=== PATIENT | female | born 1980 ===

== ENCOUNTER 2017-11-07 08:45 | Outpatient (RCR) | payer MEDICAID, SELFPAY ==
--- NOTE | 2017-11-07 09:00 | IE_ITS ---
Date: November 07, 2017 Referring: Myriam Mcdonough ND M.D. Diagnosis: Neck pain, Sacral Pain, Migraine Headaches, PMS, Dysmenorrhea P.T. Diagnosis: Neck pain, Sacral pain, MARTINEZ SUBJECTIVE: History of Present Illness: Donna is a 37 year old female referred for PT evaluation and treatment s/p diagnosis of neck/sacral pain, migraine headaches and dysmenorrhea. Donna reports that her symptoms began after the of her son, whom is 7 years old currently. She reports she has been seen via PT in the past and they feel that she sustained an injury to her dural tube during her delivery. She reports that post her first delivery she continued to push through and complete all that was required of her including exercise. She reports post the of her second child increased irritation to the sacral region that progressed up the spine to her cervical region with daily MARTINEZ's, jaw pain. She has had previous acupuncture, craniosacral and PT which focused on myofascial and stretching. Her current physician would like more focus on an exercise program. She has tried Yoga and loves Yoga however once she completes Yoga she has to run to the chiropractor. She reports that she seeks chiropractic manipulations every 3 weeks. She has tried to go longer and has increased irritation to the point where it is difficult to perform her daily tasks. She is gluten intolerant and watches her diet regularly to avoid inflammatory foods. Pain Ratin-5/10 Pain Location: Sacral right greater than left, cervical musculature Current Level of Function: Difficulty with driving, prolonged standing, sitting tolerance. Notes relief with chiropractic adjustments, stretching. She gets 6-8 hours of sleep per night. Notes occasional numbness in her left ring finger, she also notes occasionally her hands turn white and get really cold. She notes of pin prick sensations down her lateral legs into her feet. Declines any bowel/bladder dysfunction. Previous Treatment: Chiropractor, Acupuncture, Physical therapy Social: She lives at home with her 2 children and . 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 She has the semester off. Comorbidities: 4 breasts surgeries to remove fibro cysts, Anxiety, Migraines Falls in the last year: No Reported hospitalizations in the last year - No Medications: Supplements Quality of Life: Fair Standardized Measures: MOLBPDQ: __28%__ NDI score: __32%__ OBJECTIVE: Posture: Equal iliac crest, equal shoulder height, mild forward head. Observation: Appears to be in no acute distress. Demonstrates independent transfers without pain or limitation Gait: Nonantalgic. Is able to heel and toe walk without dysfunction Palpation: Tenderness to palpation over the right greater than left PSIS, into the pelvic brim and gluteal musculature. (-) PA glides to the lumbar spine. Tenderness and increased tone into the upper trap, lev scap, SCM, scalenes and paraspinal musculature ROM: Active cervical ROM WFL except side bending limited to 20-25 degrees with increased drawing sensation. Lumbar ROM forward bend 4 inches fingers to floor with increased drawing sensation. Extension WFL with increased LBP. She is able to complete full prone press up with mild end range pain. Sidebending WFL with fingertips to lateral joint line bilaterally. Rotation is equal and symmetrical without pain. AA LE ROM is WFL's declines pain however noted tightness. A UE ROM WNL's and painfree. Strength: Demonstrates grossly 5/5 UE strength bilaterally. LE strength 5/5 with the exception of hip abduction 4/5, extension 4+/5. Fair abdominal strength. Neuro: Intact to light touch. Special Tests: (-) PAULETTE, (-) SLR, (-) Foraminal compression Treatment: IE: 75113 Patient Education: HEP, manual cervical mobilization, soft tissue stretching, soft tissue mobilization to the upper back and neck TPR to the upper trap and lev scap. scalenes. Ended with cervical MHP for 10 minutes post session. Direct treatment time: 60 minutes Total treatment time: 70 minutes ASSESSMENT: Patient is a 37-year-old female, referred for PT services with the diagnosis of sacral pain, cervical pain, MARTINEZ's, dysmenorrhea. Patient presents with clinical signs and symptoms consistent with diagnosis, as demonstrated by the following impairment level findings: impaired muscle performance, soft tissue dysfunction , motor function. Impairments are contributing to the following functional limitations: limited standing and sitting tolerance, ADL tolerance Patient is assessed as: Low 65212 complexity, based on the following: History: See comorbidities and social history. Examination: See above for functional limitations and impairments. Presentation: Stable . Decision-Making: Low complexity 32 % Disability based on NDI Patient requires skilled PT intervention to remediate the above functional limitations to return to: __X__ Premorbid level of function __X__ Return to full functional mobility __X__ Return to work demands __X__ Improve QOL Prognosis: Good STG: __4__ weeks. 1. Patient report 25% reduction in MARTINEZ's or greater. 2. Improved core awareness with progression of strong core stabilization program. 3. Reduced PDR by 25 % or greater via NDI/MOLBPQ LTG: __8__ weeks. 1. Return to premorbid level of function with more manageable symptoms 2. Return to full functional mobility with more manageable symptoms. 3. Independent with self-maintenance program. PLAN: Patient to be seen 1-2 x per week, for 8 weeks, adjusting frequency of visits per patient symptoms and response to treatment. Treatment to include: Manual therapy - 32629: Promoting STM to the upper back and neck, cervical mobilizations. Therapeutic exercise - 58169.Promoting core strength, global conditioning promoting postural and body mechanics. Progression to strong independent self management program with discharge when above goals have been met. Thank you for this referral. Please do not hesitate to contact me with any questions or concerns regarding this patient's plan of care.
== END 2017-11-09 23:59 | disposition home or self-care (01) ==
LOC: PT 08:45
PROVIDERS: PCP Naturopath; Referring Provider Naturopath; Visit Provider Naturopath
DX: M54.2 Cervicalgia (principal); M53.3 Sacrococcygeal disorders, not elsewhere classified; R51 Headache
CPT/HCPCS: 97140; 97161

== ENCOUNTER 2020-02-09 19:45 | Outpatient (REF) | payer MEDICAID, SELFPAY ==
[2020-02-11 19:00] LABS: SARS-CoV-2 RNA Undetected (Undetected); SARS-CoV-2 Specimen Source Nasal
== END 2020-02-09 20:05 ==
LOC: NCHCN 19:45
PROVIDERS: PCP Naturopath; Visit Provider Nurse Practitioner Family
DX: J06.9 Acute upper respiratory infection, unspecified (principal)
CPT/HCPCS: U0003

== ENCOUNTER 2020-05-25 22:12 | Outpatient (REF) | payer MEDICAID, SELFPAY ==
[2020-05-25 22:07] LABS: HCT 42.1 % (36.0-46.0); HGB 13.8 g/dL (11.2-15.7); MCHC 32.8 % (32.0-36.0); MCV 82.2 fL (80-95); MPV 10.8 fL (8.0-11.0); Platelet Count 276 10^3/uL (130-400); RBC 5.12 10^6/uL (3.93-5.22); RDW 21.9 % (11.7-14.6); RDW-SD 64.4 fL; WBC 7.22 10^3/uL (4.4-10.8)
[2020-05-25 22:08] LABS: Iron 228 ug/dL (50-170); Total Iron Binding Capacity 323 ug/dL (250-450); Transferrin Sat 71 % (15-50)
[2020-05-25 22:21] LABS: Ferritin 36 ng/mL (8-252)
== END 2020-05-25 22:13 | disposition home or self-care (01) ==
LOC: NCHCN 22:12
PROVIDERS: PCP Naturopath; Visit Provider Nurse Practitioner Family
DX: D50.9 Iron deficiency anemia, unspecified (principal)
CPT/HCPCS: 85027; 82728; 83540; 83550

== ENCOUNTER 2020-06-17 13:16 | Outpatient (REF) | payer MEDICAID, SELFPAY ==
[2020-06-17 13:04] LABS: ESR 3 mm//hr (0-20)
[2020-06-17 13:16] LABS: ALT 41 U/L (14-59); AST 44 U/L (15-37); Alkaline Phosphatase 66 U/L (46-116); Anion Gap 7.6 mmol/L (3-11); BUN 9 mg/dL (7-18); Bilirubin, Total 0.5 mg/dL (0.2-1.0); C-Reactive Protein 0.06 mg/dL (0.0-0.3); CO2 27.4 mmol/L (21.0-32.0); CREATININE 0.7 mg/dL (0.55-1.02); Chloride 103 mmol/L (98-107); Glucose 84 mg/dL (74-106); Potassium 4.2 mmol/L (3.5-5.1); Sodium 138 mmol/L (136-145); Total Protein 6.8 g/dL (6.4-8.2)
[2020-06-17 20:31] LABS: Rheumatoid Factor <8.6 IU/mL (<12.0)
[2020-06-18 09:41] LABS: Cyclic Citrullinated Peptide <2.5 U/mL (<5.0)
[2020-06-18 16:32] LABS: ANA Interpretation Negative (Negative)
== END 2020-06-17 13:17 | disposition home or self-care (01) ==
LOC: NCHCN 13:16
PROVIDERS: PCP Naturopath; Visit Provider Nurse Practitioner Family
DX: R14.0 Abdominal distension (gaseous) (principal); R42 Dizziness and giddiness; M25.59 Pain in other specified joint
CPT/HCPCS: 80053; 85652; 86200; 86038; 86140; 86431

== ENCOUNTER 2020-09-24 14:00 | Outpatient (REF) | payer MEDICAID, SELFPAY ==
[2020-09-24 20:47] LABS: HCT 41.4 % (36.0-46.0); MCH 30.4 pg (27.0-33.0); MCHC 33.8 % (32.0-36.0); MPV 11.5 fL (8.0-11.0); Platelet Count 228 10^3/uL (130-400); RDW-SD 39.1 fL; WBC 4.91 10^3/uL (4.4-10.8)
[2020-09-24 20:57] LABS: Iron 106 ug/dL (50-170); Total Iron Binding Capacity 319 ug/dL (250-450); Transferrin Sat 33 % (15-50)
[2020-09-24 21:17] LABS: Ferritin 27 ng/mL (8-252)
== END 2020-09-24 14:01 | disposition home or self-care (01) ==
LOC: NCHCN 14:00
PROVIDERS: PCP Naturopath; Visit Provider Nurse Practitioner Family
DX: D50.9 Iron deficiency anemia, unspecified (principal)
CPT/HCPCS: 85027; 82728; 83540; 83550

== ENCOUNTER 2020-11-30 19:50 | Outpatient (REF) | payer MEDICAID, SELFPAY ==
[2020-11-30 20:38] LABS: Bilirubin Negative (Negative); Blood Trace-intact (Negative); Clarity Sl Cloudy (Clear); Glucose Negative (Negative); Ketones Negative (Negative); Leukocyte Esterase Large (Negative); Nitrite Negative (Negative); Urobilinogen 0.2 EU/dL (Up TO 0.2); pH 7.5 (5-8)
[2020-11-30 21:14] LABS: Bacteria Many HPF (Negative); C & S Indicated? No/Sq. Contamination; Crystals Negative HPF (Negative); Epithelial Cells Many HPF (Negative); Mucus Negative (Negative); RBC 0-2 HPF (0-2)
== END 2020-11-30 19:51 | disposition home or self-care (01) ==
LOC: NCHCN 19:50
PROVIDERS: PCP Naturopath; Visit Provider Naturopath
DX: R35.0 Frequency of micturition (principal)
CPT/HCPCS: 81003; 81015

== ENCOUNTER 2020-12-22 07:56 | Outpatient (REF) | payer MEDICAID, SELFPAY ==
[2020-12-21 22:02] LABS: Bilirubin Negative (Negative); Blood Negative (Negative); Clarity Clear (Clear); Glucose Negative (Negative); Ketones Negative (Negative); Leukocyte Esterase Negative (Negative); Nitrite Negative (Negative); Specific Gravity 1.025 (1.005-1.025); Urobilinogen 0.2 EU/dL (Up TO 0.2); pH 7.5 (5-8)
== END 2020-12-22 07:57 | disposition home or self-care (01) ==
LOC: LBN 07:56
PROVIDERS: PCP Naturopath; Visit Provider Naturopath
DX: R31.9 Hematuria, unspecified (principal)
CPT/HCPCS: 81003

== ENCOUNTER 2021-04-07 21:30 | Outpatient (REF) | payer MEDICAID, SELFPAY ==
[2021-04-07 22:17] LABS: Bilirubin Negative (Negative); Blood Small (Negative); Clarity Clear (Clear); Glucose Negative (Negative); Ketones Negative (Negative); Leukocyte Esterase Moderate (Negative); Nitrite Negative (Negative); Urobilinogen 0.2 EU/dL (Up TO 0.2); pH 7.5 (5-8)
[2021-04-07 22:34] LABS: Bacteria Many HPF (Negative); C & S Indicated? No/Sq. Contamination; Casts Negative LPF (Negative); Crystals Negative HPF (Negative); Epithelial Cells Moderate HPF (Negative); Mucus Negative (Negative); Other Cells Negative (Negative); RBC Negative HPF (0-2)
== END 2021-04-07 21:31 | disposition home or self-care (01) ==
LOC: LBN 21:30
PROVIDERS: PCP Naturopath; Visit Provider Naturopath
DX: N30.40 Irradiation cystitis without hematuria (principal)
CPT/HCPCS: 81003; 81015